=== PATIENT | female | born 1985 | race Two or more races ===

== ENCOUNTER 2016-11-06 07:22 | Inpatient (IN) | payer OTHER ==
[2016-11-06] MEDS: DEXTROSE 5%-LACTATED RINGERS 1,000 ML IV SCH (08:00)
[2016-11-06 08:55] LABS: BASOPHIL 0.1 % (0-2.0); EOSINOPHIL 0.2 % (0-4.5); MCH 29.6 pg (25.7-33.7); MCHC 34.1 g/dl (32.0-36.0); MEAN CELL VOLUME 86.9 fl (80-96); MEAN PLT VOLUME 9.7 fl (7.5-11.1); NEUTROPHILS 84.6 % (42.8-82.8); PLATELET COUNT 126 K/MM3 (134-434); RDW 13.3 % (11.6-15.6); WHITE BLOOD COUNT 12.6 K/mm3 (4.0-10.0)
[2016-11-06 09:12] LABS: INR 0.91 (0.82-1.09)
[2016-11-06 09:15] LABS: ACTIVATED PTT 27.6 SECONDS (26.9-34.4)
[2016-11-06 09:17] LABS: CALCIUM 8.5 mg/dL (8.5-10.1); CREATININE 0.5 mg/dL (0.55-1.02)
[2016-11-06 09:21] VITALS: BMI 25.4
--- NOTE | 2016-11-06 10:06 | HP ---
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 negative echo History Source: Patient, Significant Other Limitations to Obtaining History: Language Barrier - Past Medical History ...: 1 ...Para: 0 ...Term: 0 ...: 0 ...Spon : 0 ...Induced : 0 ...Multiple Gestation: 0 ...LMP: 02/10/16 ... Weeks Gestation by Dates: 38.4 ...EDC by Dates: 11/16/16 ...EDC by Sono: 11/08/16 - Past Surgical History Hx Myomectomy: No Hx Transabdominal Cerclage: No - Smoking History Smoking history: Never smoked Have you smoked in the past 12 months: No - Alcohol/Substance Use Hx Alcohol Use: No Home Medications - Allergies Allergies/Adverse Reactions: Allergies Allergy/AdvReac Type Severity Reaction Status Date / Time No Known Allergies Allergy Verified 11/06/16 09:21 - Home Medications Home Medications: Ambulatory Orders Ferrous Sulfate 325 mg PO DAILY 09/22/16 Pnv95/Ferrous Fumarate/FA [ Vitamin Tablet] 1 each PO DAILY 09/22/16 Review of Systems - Review of Systems Constitutional: reports: No Symptoms Eyes: reports: No Symptoms HENT: reports: No Symptoms Neck: reports: No Symptoms Cardiovascular: reports: No Symptoms Respiratory: reports: No Symptoms Genitourinary: reports: No Symptoms Breasts: reports: No Symptoms Reported Musculoskeletal: reports: No Symptoms Integumentary: reports: No Symptoms Neurological: reports: No Symptoms Endocrine: reports: No Symptoms Hematology/Lymphatic: reports: No Symptoms Psychiatric: reports: No Symptoms Physical Exam - Maternity Vital Signs: Vital Signs Temperature 98.0 F 11/06/16 07:45 Pulse Rate 84 11/06/16 07:45 Respiratory Rate 20 11/06/16 07:45 Blood Pressure 113/80 11/06/16 07:45 O2 Sat by Pulse Oximetry (%) Constitutional: Yes: Well Nourished, No Distress, Calm Eyes: Yes: WNL, Conjunctiva Clear, EOM Intact HENT: Yes: WNL, Atraumatic, Normocephalic Neck: Yes: WNL, Supple, Trachea Midline Cardiovascular: Yes: WNL, Regular Rate and Rhythm Breast(s): Yes: WNL - Abdominal Exam/OB Fundal Height: 38 Number of Fetuses: Single Presentation: Vertex Contractions: Yes Regularity: Regular Intensity: Mod/Strong Monitor Mode: External Heart Rate Location: [facility] Category: I Accelerations: Uniform - Vaginal Exam/OB Vaginal Bleediing: No Speculum Exam: Yes Dilatation (cm): 7 cm Effacement (%): 100 Amniotic Membrane Status: Ruptured Nitrazine Test: Positive Amniotic Fluid: Yes: Clear Presentation: Vertex/Position Station: 0 - Physical Exam Edema: LLE: Trace, RLE: Trace - Labs Lab Results: CBC, BMP 11/06/16 08:05 11/06/16 08:05 Problem List - Problems (1) with 38 completed weeks gestation Code(s): Z3A.38 - 38 WEEKS GESTATION OF (2) Labor established Code(s): MTA1933 - Assessment/Plan admit, fh monitoring
[2016-11-06] MEDS ORDERED: BUTORPHANOL TARTRATE 1 MG/ML VIAL IVPUSH ONE (11:49)
--- NOTE | 2016-11-06 11:49 | PN ---
Progress Note (short form) - Note Progress Note: cx ant lip 100 vx 0 mr op, , fhr cat 1, very uncomfortable wants pain med , Problem List - Problems (1) with 38 completed weeks gestation Code(s): Z3A.38 - 38 WEEKS GESTATION OF (2) Labor established Code(s): [id number] -
--- NOTE | 2016-11-06 13:38 | PN ---
Progress Note (short form) - Note Progress Note: cx full 100 vx 0 ,fhr cat 1, contraction,. moderate Problem List - Problems (1) with 38 completed weeks gestation Code(s): Z3A.38 - 38 WEEKS GESTATION OF (2) Labor established Code(s): EJC3482 -
[2016-11-06] MEDS: IBUPROFEN 600 MG TABLET (FP) PO PRN ×2 (16:15→19:57)
[2016-11-06] MEDS ORDERED: BENZOCAINE 28 GM HEMORRHOIDAL OINTMENT TP PRN (16:18)
[2016-11-06] MEDS ORDERED: WITCH HAZEL 50% (TUCKS) 40 PAD/JAR PAD TP PRN (16:18)
[2016-11-06] MEDS ORDERED: METHYLERGONOVINE MALEATE 0.2 MG/1 ML AMP IM PRN (16:18)
[2016-11-06] MEDS ORDERED: BISACODYL 10 MG SUPP.RECT RC PRN (16:18)
[2016-11-06] MEDS ORDERED: D5W-LR W/ 20 UNITS OXYTOCIN 1,000 ML IV SCH (16:30)
[2016-11-06 17:05] LABS: ARTERIAL BLD GAS O2 SATURATION 57.2 % (90-98.9); ARTERIAL BLOOD GAS BASE EXCESS -3.4 meq/l (-2-2); ARTERIAL BLOOD GAS HCO3 21.4 meq/L (22-26); ARTERIAL BLOOD GAS pH 7.35 (7.35-7.45)
[2016-11-06 17:06] LABS: PT. ON O2? no
[2016-11-06 17:08] LABS: ARTERIAL BLD GAS O2 SATURATION 34.8 % (90-98.9); ARTERIAL BLOOD GAS BASE EXCESS -5.8 meq/l (-2-2); ARTERIAL BLOOD GAS HCO3 22.4 meq/L (22-26); ARTERIAL BLOOD GAS pH 7.22 (7.35-7.45); PT. ON O2? NO
[2016-11-06 17:09] LABS: ARTERIAL BLOOD GAS PO2 23.5 mmHg (80-100)
[2016-11-06] MEDS ORDERED: oxyCODONE HCL 5 MG TABLET PO PRN (17:59)
[2016-11-06] MEDS: ACETAMINOPHEN 325 MG TABLET (FP) PO PRN (19:56)
[2016-11-07] MEDS: IBUPROFEN 600 MG TABLET (FP) PO PRN ×4 (05:14→20:53)
[2016-11-07] MEDS: ACETAMINOPHEN 325 MG TABLET (FP) PO PRN ×4 (05:14→20:53)
[2016-11-07 08:40] LABS: BASOPHIL 0.3 % (0-2.0); EOSINOPHIL 0.1 % (0-4.5); MCH 30.4 pg (25.7-33.7); MCHC 34.7 g/dl (32.0-36.0); MEAN CELL VOLUME 87.4 fl (80-96); MEAN PLT VOLUME 9.9 fl (7.5-11.1); NEUTROPHILS 86.8 % (42.8-82.8); PLATELET COUNT 140 K/MM3 (134-434); RDW 13.2 % (11.6-15.6); WHITE BLOOD COUNT 16.3 K/mm3 (4.0-10.0)
[2016-11-07] MEDS: FERROUS SO4 325 MG TABLET (FP) PO SCH ×4 (09:22→22:28)
[2016-11-07] MEDS: PRENATAL VITAMINS W/ FOLIC ACID TABLET (FP) PO SCH (09:23)
[2016-11-07] MEDS ORDERED: PRENATAL VITAMINS W/ FOLIC ACID TABLET (FP) PO SCH (10:00)
[2016-11-07] MEDS: BENZOCAINE 20% 57 GM BOTTLE TP PRN (11:04)
--- NOTE | 2016-11-07 11:17 | PN ---
Progress Note (short form) - Note Progress Note: ppd 1 doing well, no excess vaginal bleding, voids ok CBC, BMP 11/07/16 07:45 11/06/16 08:05 Last Vital Signs Temp Pulse Resp BP Pulse Ox 97.8 F 95 H 18 100/65 100 11/07/16 10:00 11/07/16 10:00 11/07/16 10:00 11/07/16 10:00 11/06/16 16:45 abdomen soft , non tender, no cva uterus firm , non tender lochia mild , no calf tenderness plan ambulate, plan d/c home in am Problem List - Problems (1) with 38 completed weeks gestation Code(s): Z3A.38 - 38 WEEKS GESTATION OF (2) Labor established Code(s): [id number] -
[2016-11-07] MEDS: DEXTROSE 5%-LACTATED RINGERS 1,000 ML IV SCH (11:52)
[2016-11-07] MEDS ORDERED: SENNOSIDES/DOCUSATE COMBO (SENNA PLUS) TABLET (UD) PO PRN (22:00)
[2016-11-08] MEDS: IBUPROFEN 600 MG TABLET (FP) PO PRN ×2 (08:45→12:40)
[2016-11-08] MEDS: ACETAMINOPHEN 325 MG TABLET (FP) PO PRN ×2 (08:45→12:40)
[2016-11-08] MEDS: BENZOCAINE 20% 57 GM BOTTLE TP PRN (08:46)
[2016-11-08] MEDS: FERROUS SO4 325 MG TABLET (FP) PO SCH ×2 (08:47→10:32)
[2016-11-08 09:10] VITALS: BP 110/75; PULSE 95; TEMP 98.2
--- NOTE | 2016-11-08 09:16 | DS ---
Physical Exam-[facility] [employer] Vital Signs: Vital Signs Temperature 98.2 F 11/08/16 09:08 Pulse Rate 95 H 11/08/16 09:08 Respiratory Rate 18 11/08/16 09:08 Blood Pressure 110/75 11/08/16 09:08 O2 Sat by Pulse Oximetry (%) 100 11/06/16 16:45 Constitutional: Yes: Well Nourished, No Distress, Calm Eyes: Yes: WNL, Conjunctiva Clear, EOM Intact HENT: Yes: WNL, Atraumatic, Normocephalic Neck: Yes: WNL, Supple, Trachea Midline Cardiovascular: Yes: WNL, Regular Rate and Rhythm Respiratory: Yes: WNL, Regular, CTA Bilaterally Gastrointestinal: Yes: WNL ...Rectal Exam: Yes: WNL Renal/: Yes: WNL ....Post : Yes: Uterus firm, Uterus non-tender, Slight lochia rubra Breast(s): Yes: WNL Musculoskeletal: Yes: WNL Extremities: Yes: WNL Edema: No Integumentary: Yes: WNL Neurological: Yes: WNL, Alert, Oriented ...Motor Strength: WNL Psychiatric: Yes: WNL, Alert, Oriented Labs: CBC, BMP 11/07/16 07:45 11/06/16 08:05 Delivery - Delivery Vaginal Delivery: Spontaneous (no complication) Type of Anesthesia: Local Episiotomy/Laceration: Midline EBL (cc): 300 Delivery, Single - Stages of Labor Date 1st Stage Initiatied: 11/06/16 Time 1st Stage Initiated: 06:00 Date 2nd Stage Initiated: 11/06/16 Time 2nd Stage Initiated: 13:30 Date of Delivery: 11/06/16 Time of Delivery: 15:37 Time Placenta Delivered: 15:40 Placenta: Yes: Spontaneous - Condition of M[employer]/Atmospheric Chemist Present: Yes Name: Mulu Nielson Infant Gender: Male Weight: 6 lb 11 oz Position: Right, OA Total Hours ROM (Hrs/Mins): 8hrs 15min - 1 Minute Total Score: 9 5 Minutes Total Score: 9 - Feeding Plan Initial Plan: Elected not to breastfeed exclusively throughout hospitalization Discharge Summary Reason For Visit: LABOR Current Active Problems Labor established (Acute) with 38 completed weeks gestation (Acute) Procedures: Principal: , median episiotomy Condition: Good - Instructions Diet, Activity, Other Instructions: regular diet, follow up [facility] care 4 weeks Referrals: [facility] (Gladis Faye) [Outside] Mg John MD [Staff Physician] - Disposition: HOME - Home Medications Comprehensive Discharge Medication List: Ambulatory Orders Ferrous Sulfate 325 mg PO DAILY 09/22/16 Pnv95/Ferrous Fumarate/FA [ Vitamin Tablet] 1 each PO DAILY 09/22/16 Ibuprofen [Motrin -] 600 mg PO QID #28 tablet 11/07/16
[2016-11-08] MEDS: PRENATAL VITAMINS W/ FOLIC ACID TABLET (FP) PO SCH (10:33)
== END 2016-11-08 15:00 | disposition home or self-care (01) | DRG 560 ==
LOC: JDEL 07:22 → JLDR 07:45 → J3W 19:30
PROVIDERS: ADMIT Obstetrics & Gynecology; ATTEND Obstetrics & Gynecology
PROC: 10E0XZZ Delivery of Products of Conception, External Approach (ICD-10-PCS; principal; 2016-11-06)
PROC: 0W8NXZZ Division of Female Perineum, External Approach (ICD-10-PCS; 2016-11-06)
DX: O80 Encounter for full-term uncomplicated delivery (principal); Z3A.38 38 weeks gestation of pregnancy; Z37.0 Single live birth
CPT/HCPCS: 36415; 36600; 59409; 80048; 82803; 85025; 85610; 85730; 86593; 86850; 86900; 86901